=== PATIENT | male | born 1985 | race Caucasian/White ===

== ENCOUNTER 2018-01-18 09:41 | Inpatient (IN) | payer MEDICAID, OTHER ==
[~2018-01-18] VITALS: Ht 180.3 cm; Wt 78.6 kg
[~2018-01-18 09:41] MED LIST: PROP10TA73 PO; SERT50TA12 PO
[2018-01-18] MEDS ORDERED: PERTUSS(ACELL),DIPH,TET VAC/PF 0.5 ML VIAL IM ONE (10:30)
[2018-01-18 11:10] LABS: BASOPHILS % (AUTO) 0.4 % (0.0-2.0); EOSINOPHILS % (AUTO) 4.7 % (1.0-6.0); HEMATOCRIT 37.2 % (41-53); LYMPHOCYTES # (AUTO) 2.1 K/uL (1.0-4.8); LYMPHOCYTES % (AUTO) 36.5 % (22.0-44.0); MEAN CORPUSCULAR HEMOGLOBIN 33.2 pg (26.0-34.0); MEAN CORPUSCULAR HGB CONC 34.8 G/dL (31.0-37.0); MEAN CORPUSCULAR VOLUME 95 fL (80-100); MONOCYTES # (AUTO) 0.7 K/uL (0.1-1.0); MONOCYTES % (AUTO) 11.8 % (2.0-9.0); NEUTROPHILS # (AUTO) 2.7 K/uL (1.8-7.7); NEUTROPHILS % (AUTO) 46.6 % (40.0-70.0); PLATELET COUNT (AUTO) 227 K/uL (150-450); RED CELL DISTRIBUTION WIDTH 13.5 % (11.5-14.5)
[2018-01-18 11:18] LABS: ANION GAP 11 mmol/L (8-16); CALCIUM, TOTAL 8.3 mg/dL (8.8-10.5); CARBON DIOXIDE 28 mmol/L (22-29); CHLORIDE 105 mmol/L (98-107); CREATININE 0.69 mg/dL (0.60-1.30); GLOMERULAR FILTR. RATE CALC > 60 mL/min (>60); GLUCOSE,RANDOM 83 mg/dL (70-110); POTASSIUM 3.6 mmol/L (3.5-5.1); SODIUM SERUM 144 mmol/L (136-145); UREA NITROGEN, BLOOD 5 mg/dL (7-18)
[2018-01-18 11:23] LABS: ALANINE AMINOTRANSFERASE 52 U/L (12-78); ALBUMIN 3.3 g/dL (3.4-5.0); ALKALINE PHOSPHATASE 88 U/L (46-116); ASPARTATE AMINOTRANSFERASE 62 U/L (15-37); BILIRUBIN,TOTAL 0.2 mg/dL (0.1-1.0); TOTAL PROTEIN, SERUM 7.2 g/dL (6.4-8.2)
[2018-01-18] MEDS ORDERED: ChlordiazePOXIDE HCL 25 MG CAPSULE PO ONE (12:00)
[2018-01-18 12:41] LABS: AMPHET/METH SCREEN,URINE NEGATIVE (NEGATIVE); BARBITURATE SCREEN, URINE NEGATIVE (NEGATIVE); BENZODIAZEPINES SCREEN,URINE POSITIVE (NEGATIVE); CANNABINOID SCREEN,URINE POSITIVE (NEGATIVE); COCAINE SCREEN,URINE NEGATIVE (NEGATIVE); METHADONE SCREEN, URINE NEGATIVE (NEGATIVE); OPIATE SCREEN,URINE NEGATIVE (NEGATIVE)
[2018-01-18 12:49] LABS: PHENCYCLIDINE SCREEN,URINE NEGATIVE (NEGATIVE)
[2018-01-18] MEDS ORDERED: ACETAMINOPHEN 325 MG TABLET PO PRN (16:00)
[2018-01-18] MEDS ORDERED: OLANZapine 5 MG RAPDIS TABLET PO PRN (16:00)
[2018-01-18] MEDS ORDERED: TUBERCULIN, PURIFIED PROTEIN DERIVATIVE 5 TU/0.1 ML SYG ID ONE (16:00)
[2018-01-18] MEDS ORDERED: CYANOCOBALAMIN 1,000 MCG/ML VIAL IM ONE (16:00)
[2018-01-18] MEDS ORDERED: HydrOXYzine PAMOATE 50 MG CAPSULE PO PRN (16:00)
[2018-01-18] MEDS ORDERED: GuaiFENesin/D-METHORPHAN [SUGAR-FREE] 200-20MG/10 ML SYRUP UDCUP PO PRN (16:00)
[2018-01-18] MEDS ORDERED: MAG HYDROX/AL HYDROX/SIMETH ES 30 ML SUSPENSION UDCUP PO PRN (16:00)
[2018-01-18] MEDS ORDERED: ZOLPIDEM TARTRATE 10 MG TABLET PO PRN (16:00)
[2018-01-18] MEDS ORDERED: PROMETHAZINE HCL 25 MG TABLET PO PRN (16:00)
[2018-01-18] MEDS ORDERED: LOPERAMIDE HCL 2 MG CAPSULE PO PRN (16:00)
[2018-01-18] MEDS ORDERED: MAGNESIUM HYDROXIDE SUSPENSION 30 ML UDCUP PO PRN (16:00)
[2018-01-18] MEDS: THIAMINE HCL 100 MG TABLET PO SCH (21:00)
[2018-01-18] MEDS: DIAZEPAM 10 MG TABLET PO PRN (23:55)
[2018-01-19] VITALS (11 sets, daily range): BP systolic 115–149; BP diastolic 66–105
[2018-01-19] MEDS: DIAZEPAM 10 MG TABLET PO PRN (04:12)
[2018-01-19] MEDS ORDERED: DIAZEPAM 10 MG TABLET PO PRN (07:00)
[2018-01-19 07:27] LABS: BASOPHILS % (AUTO) 0.5 % (0.0-2.0); EOSINOPHILS % (AUTO) 3.4 % (1.0-6.0); HEMATOCRIT 39.5 % (41-53); HEMOGLOBIN 13.3 g/dL (13.5-17.5); LYMPHOCYTES # (AUTO) 1.4 K/uL (1.0-4.8); MEAN CORPUSCULAR HEMOGLOBIN 32.7 pg (26.0-34.0); MEAN CORPUSCULAR HGB CONC 33.6 G/dL (31.0-37.0); MEAN CORPUSCULAR VOLUME 97 fL (80-100); MONOCYTES # (AUTO) 0.5 K/uL (0.1-1.0); MONOCYTES % (AUTO) 9.8 % (2.0-9.0); NEUTROPHILS # (AUTO) 3.2 K/uL (1.8-7.7); NEUTROPHILS % (AUTO) 60.3 % (40.0-70.0); PLATELET COUNT (AUTO) 243 K/uL (150-450); RED BLOOD CELL COUNT(AUTO) 4.06 MIL/uL (4.50-5.90); RED CELL DISTRIBUTION WIDTH 13.7 % (11.5-14.5)
[2018-01-19 07:40] LABS: HEMOGLOBIN A1C 5.2 % (4.5-6.2)
[2018-01-19 07:49] LABS: ANION GAP 6 mmol/L (8-16); CARBON DIOXIDE 31 mmol/L (22-29); CHLORIDE 104 mmol/L (98-107); CREATININE 0.59 mg/dL (0.60-1.30); GLUCOSE,RANDOM 82 mg/dL (70-110); SODIUM SERUM 141 mmol/L (136-145); UREA NITROGEN, BLOOD 6 mg/dL (7-18)
[2018-01-19 07:50] LABS: ALANINE AMINOTRANSFERASE 49 U/L (12-78); ALBUMIN 2.9 g/dL (3.4-5.0); ALKALINE PHOSPHATASE 84 U/L (46-116); ASPARTATE AMINOTRANSFERASE 53 U/L (15-37); BILIRUBIN,TOTAL 0.4 mg/dL (0.1-1.0); CALCIUM, TOTAL 8.3 mg/dL (8.8-10.5); CHOL/HDL RATIO 3.6 (4.2-7.3); CHOLESTEROL 188 mg/dL (131-200); FREE T4 (FREE THYROXINE) 0.63 ng/dL (0.76-1.46); GLOMERULAR FILTR. RATE CALC > 60 mL/min (>60); HDL CHOLESTEROL 52 mg/dL (40-60); LDL CHOL (CALC.) 119 mg/dL (0-130); THYROID STIMULATING HORMONE 0.93 uIU/mL (0.36-3.74); TOTAL PROTEIN, SERUM 6.2 g/dL (6.4-8.2); TRIGLYCERIDES 87 mg/dL (15-150)
[2018-01-19] MEDS: NALTREXONE HCL 50 MG TABLET PO SCH (10:02)
[2018-01-19] MEDS: FOLIC ACID 1 MG TABLET PO SCH (10:03)
[2018-01-19] MEDS: THIAMINE HCL 100 MG TABLET PO SCH ×2 (10:03→18:00)
[2018-01-19] MEDS: SERTRALINE HCL 50 MG TABLET PO SCH (10:04)
[2018-01-19] MEDS: DIAZEPAM 10 MG TABLET PO SCH ×4 (10:04→21:12)
[2018-01-19] MEDS: MULTIVITAMINS WITH MINERALS, THERAPEUTIC TABLET PO SCH (10:04)
[2018-01-19] MEDS ORDERED: DIAZEPAM 10 MG TABLET PO ONE (14:00)
[2018-01-20 03:00] VITALS: BP 131/78
[2018-01-20 03:43] VITALS: BP 131/78
[2018-01-20 07:00] VITALS: BP 129/95
[2018-01-20 09:53] VITALS: BP 151/92
[2018-01-20] MEDS: ARIPiprazole 10 MG TABLET PO SCH (09:58)
[2018-01-20] MEDS: FOLIC ACID 1 MG TABLET PO SCH (09:58)
[2018-01-20] MEDS: MULTIVITAMINS WITH MINERALS, THERAPEUTIC TABLET PO SCH (09:58)
[2018-01-20] MEDS: DIAZEPAM 10 MG TABLET PO SCH ×4 (09:58→21:55)
[2018-01-20] MEDS: THIAMINE HCL 100 MG TABLET PO SCH ×2 (09:58→16:46)
[2018-01-20] MEDS: SERTRALINE HCL 50 MG TABLET PO SCH (09:58)
[2018-01-20] MEDS: NALTREXONE HCL 50 MG TABLET PO SCH (09:58)
[2018-01-20] MEDS: BACITRACIN 28.4 GM OINTMENT TP SCH ×2 (11:07→16:46)
[2018-01-20 16:00] VITALS: BP 133/85
[2018-01-20] MEDS ORDERED: NALT50TA PO (17:45)
[2018-01-20] MEDS ORDERED: ARIP10TA8 PO (17:45)
[2018-01-20] MEDS ORDERED: SERT50TA12 PO (17:45)
[2018-01-21] MEDS ORDERED: DIAZEPAM 5 MG TABLET PO PRN (07:00)
[2018-01-21] MEDS: ARIPiprazole 10 MG TABLET PO SCH (09:48)
[2018-01-21] MEDS: FOLIC ACID 1 MG TABLET PO SCH (09:48)
[2018-01-21] MEDS: MULTIVITAMINS WITH MINERALS, THERAPEUTIC TABLET PO SCH (09:48)
[2018-01-21] MEDS: THIAMINE HCL 100 MG TABLET PO SCH (09:48)
[2018-01-21] MEDS: NALTREXONE HCL 50 MG TABLET PO SCH (09:48)
[2018-01-21] MEDS: SERTRALINE HCL 50 MG TABLET PO SCH (09:48)
[2018-01-21] MEDS: DIAZEPAM 5 MG TABLET PO SCH ×2 (09:49→12:32)
[2018-01-21] MEDS ORDERED: BACI30OI10 TP (09:51)
[2018-01-21] MEDS: BACITRACIN 28.4 GM OINTMENT TP SCH (10:45)
[2018-01-21] MEDS ORDERED: LOPERAMIDE HCL 2 MG CAPSULE PO PRN (16:00)
[2018-01-22] MEDS ORDERED: DIAZEPAM 5 MG TABLET PO PRN (07:00)
== END 2018-01-21 13:00 | disposition home or self-care (01) | DRG 750 ==
LOC: EMS 09:46 → 3EI 23:57
PROVIDERS: ADMIT Psychiatry & Neurology Psychiatry; ATTEND Psychiatry & Neurology Psychiatry
DX: F25.9 Schizoaffective disorder, unspecified (principal); F10.231 Alcohol dependence with withdrawal delirium; E46 Unspecified protein-calorie malnutrition; D64.9 Anemia, unspecified; F17.210 Nicotine dependence, cigarettes, uncomplicated; F32.9 Major depressive disorder, single episode, unspecified; S61.519A Laceration without foreign body of unspecified wrist, initial encounter; X78.9XXA Intentional self-harm by unspecified sharp object, initial encounter; Y90.9 Presence of alcohol in blood, level not specified; Z79.899 Other long term (current) drug therapy; Z88.2 Allergy status to sulfonamides; Z91.5 Personal history of self-harm; Y93.89 Activity, other specified; Y92.89 Other specified places as the place of occurrence of the external cause; Y99.8 Other external cause status; Z68.24 Body mass index [BMI] 24.0-24.9, adult; Z91.19 Patient's noncompliance with other medical treatment and regimen
CPT/HCPCS: 83036; 84439; 84443; 86592; 90471; 90715; 99285; G0480; J3420

== ENCOUNTER 2019-05-14 15:57 | Inpatient (IN) | payer MEDICAID, OTHER ==
[~2019-05-14] VITALS: Ht 182.9 cm; Wt 97.9 kg
[~2019-05-14 15:57] MED LIST changes: +ARIP10TA8 PO; +BACI30OI10 TP; +NALT50TA PO; -PROP10TA73 PO
[2019-05-14 17:34] LABS: BASOPHILS % (AUTO) 0.4 % (0.0-2.0); EOSINOPHILS % (AUTO) 0.4 % (1.0-6.0); HEMATOCRIT 49.2 % (41-53); HEMOGLOBIN 16.6 g/dL (13.5-17.5); LYMPHOCYTES % (AUTO) 26.2 % (22.0-44.0); MEAN CORPUSCULAR HEMOGLOBIN 31.1 pg (26.0-34.0); MEAN CORPUSCULAR HGB CONC 33.7 G/dL (31.0-37.0); MEAN CORPUSCULAR VOLUME 92 fL (80-100); MONOCYTES # (AUTO) 0.2 K/uL (0.1-1.0); MONOCYTES % (AUTO) 3.2 % (2.0-9.0); NEUTROPHILS # (AUTO) 5.3 K/uL (1.8-7.7); NEUTROPHILS % (AUTO) 69.8 % (40.0-70.0); PLATELET COUNT (AUTO) 295 K/uL (150-450); RED BLOOD CELL COUNT(AUTO) 5.34 MIL/uL (4.50-5.90); RED CELL DISTRIBUTION WIDTH 13.9 % (11.5-14.5)
[2019-05-14 17:48] LABS: ANION GAP 14 mmol/L (8-16); CALCIUM, TOTAL 8.3 mg/dL (8.8-10.5); CARBON DIOXIDE 24 mmol/L (22-29); CHLORIDE 102 mmol/L (98-107); CREATININE 0.85 mg/dL (0.60-1.30); GLOMERULAR FILTR. RATE CALC > 60 mL/min (>60); GLUCOSE,RANDOM 89 mg/dL (70-110); POTASSIUM 3.9 mmol/L (3.5-5.1); SODIUM SERUM 140 mmol/L (136-145); UREA NITROGEN, BLOOD 15 mg/dL (7-18)
[2019-05-14 17:54] LABS: ALANINE AMINOTRANSFERASE 29 U/L (12-78); ALBUMIN 4.2 g/dL (3.4-5.0); ALKALINE PHOSPHATASE 84 U/L (46-116); ASPARTATE AMINOTRANSFERASE 32 U/L (15-37); BILIRUBIN,TOTAL 0.3 mg/dL (0.1-1.0); TOTAL PROTEIN, SERUM 8.2 g/dL (6.4-8.2)
[2019-05-14 19:31] LABS: AMPHET/METH SCREEN,URINE NEGATIVE (NEGATIVE); BARBITURATE SCREEN, URINE NEGATIVE (NEGATIVE); BENZODIAZEPINES SCREEN,URINE NEGATIVE (NEGATIVE); CANNABINOID SCREEN,URINE POSITIVE (NEGATIVE); COCAINE SCREEN,URINE NEGATIVE (NEGATIVE); METHADONE SCREEN, URINE NEGATIVE (NEGATIVE); OPIATE SCREEN,URINE NEGATIVE (NEGATIVE)
[2019-05-14 19:35] LABS: PHENCYCLIDINE SCREEN,URINE NEGATIVE (NEGATIVE)
[2019-05-14] MEDS ORDERED: SODIUM CHLORIDE 0.9% 1,000 ML IV ONE ×2 (23:00)
[2019-05-14] MEDS ORDERED: PROPRANOLOL HCL 10 MG TABLET PO ONE (23:00)
[2019-05-15] MEDS ORDERED: ChlordiazePOXIDE HCL 25 MG CAPSULE PO ONE ×2 (00:15→07:15)
[2019-05-15] MEDS ORDERED: LORazepam 2 MG/ML VIAL ONE (00:57)
[2019-05-15] MEDS ORDERED: LORazepam 2 MG/ML VIAL IVP ONE ×2 (01:00→01:45)
[2019-05-15] MEDS ORDERED: ACETAMINOPHEN 325 MG TABLET PO PRN ×2 (02:00→15:45)
[2019-05-15] MEDS ORDERED: LORazepam 2 MG TABLET PO PRN (02:00)
[2019-05-15] MEDS ORDERED: ONDANSETRON HCL 4 MG/2 ML VIAL IVP PRN ×2 (02:00→15:45)
[2019-05-15] MEDS ORDERED: 0.9% SODIUM CHLORIDE 10 ML SYRINGE IVP PRN (02:00)
[2019-05-15 08:41] VITALS: BP 152/94
[2019-05-15 11:20] VITALS: BP 128/95
[2019-05-15 15:19] VITALS: BP 153/91
[2019-05-15] MEDS ORDERED: SODIUM CHLORIDE 0.45% 1,000 ML IV SCH (15:44)
[2019-05-15] MEDS ORDERED: LORazepam 2 MG/ML VIAL IVP PRN (15:45)
[2019-05-15] MEDS ORDERED: HYDROCODONE/ACETAMINOPHEN 5-325 MG TABLET PO PRN (15:45)
[2019-05-15] MEDS ORDERED: IPRATROPIUM BROMIDE 0.5 MG/2.5 ML NEB SOLUTION NEB PRN (15:45)
[2019-05-15] MEDS ORDERED: ZOLPIDEM TARTRATE 5 MG TABLET PO PRN (15:45)
[2019-05-15] MEDS ORDERED: MAGNESIUM HYDROXIDE SUSPENSION 30 ML UDCUP PO PRN (15:45)
[2019-05-15] MEDS ORDERED: ALBUTEROL SULFATE 2.5 MG/0.5 ML NEB SOLUTION NEB PRN (15:45)
[2019-05-15] MEDS ORDERED: MORPHINE SULFATE 2 MG/ML SYRINGE IVP PRN (15:45)
[2019-05-15] MEDS ORDERED: BISACODYL 10 MG RECTAL RECTAL SUPPOSITORY PR PRN (15:45)
[2019-05-15] MEDS ORDERED: HEPARIN SODIUM,PORCINE 5,000 UNITS/ML VIAL SQ SCH (16:00)
[2019-05-15] MEDS ORDERED: ChlordiazePOXIDE HCL 25 MG CAPSULE PO SCH (18:00)
[2019-05-15] MEDS ORDERED: DOCU-275 PO (18:19)
[2019-05-15] MEDS ORDERED: HEPA500018 SQ (18:19)
[2019-05-15] MEDS ORDERED: LIB25 PO (18:19)
[2019-05-15] MEDS ORDERED: FOLI1 PO (18:19)
[2019-05-15] MEDS ORDERED: MULT1TAB70 PO (18:20)
[2019-05-15] MEDS ORDERED: ACET-2247 PO (18:22)
[2019-05-15] MEDS ORDERED: THIA100T67 PO (18:22)
[2019-05-15] MEDS ORDERED: AUD NEB (18:23)
[2019-05-15] MEDS ORDERED: BISA-151 PO (18:24)
[2019-05-15] MEDS ORDERED: IPRNEB IH (18:25)
[2019-05-15] MEDS ORDERED: HYDR-4119 PO (18:25)
[2019-05-15] MEDS ORDERED: LORA2I IVP (18:26)
[2019-05-15] MEDS ORDERED: MOM30 PO (18:26)
[2019-05-15] MEDS ORDERED: MORP2CAR IV (18:27)
[2019-05-15] MEDS ORDERED: ONDA-104 PO (18:27)
[2019-05-15] MEDS ORDERED: ZOLP5 PO (18:28)
[2019-05-15] MEDS ORDERED: 45NS1000 IV (18:58)
[2019-05-15] MEDS ORDERED: DOCUSATE SODIUM 100 MG CAPSULE PO SCH (21:00)
[2019-05-16] MEDS ORDERED: FOLIC ACID 1 MG TABLET PO SCH (09:00)
[2019-05-16] MEDS ORDERED: MULTIVITAMINS, THERAPEUTIC TABLET PO SCH (09:00)
[2019-05-16] MEDS ORDERED: THIAMINE HCL 100 MG TABLET PO SCH (09:00)
== END 2019-05-15 18:15 | disposition short-term general hospital (02) | DRG 775 ==
LOC: EMS 15:59 → 5N 05-15 05:53
PROVIDERS: ADMIT Hospitalist; ATTEND Hospitalist
DX: F10.10 Alcohol abuse, uncomplicated (principal); E05.90 Thyrotoxicosis, unspecified without thyrotoxic crisis or storm; F41.9 Anxiety disorder, unspecified; F32.9 Major depressive disorder, single episode, unspecified; F17.210 Nicotine dependence, cigarettes, uncomplicated; Y90.8 Blood alcohol level of 240 mg/100 ml or more; Z88.2 Allergy status to sulfonamides
CPT/HCPCS: 93005; G0480; J2060; J7030